=== PATIENT | female | born 1960 | race Caucasian/White ===

== ENCOUNTER → 2020-05-02 | Outpatient (CLI) | payer BC | END | disposition home or self-care (01) | LOC: LABWHC1 15:37 | PROVIDERS: ATTEND Family Medicine | DX: Z20.822 Contact with and (suspected) exposure to COVID-19 (principal); R11.2 Nausea with vomiting, unspecified | CPT/HCPCS: 87502; U0003; C9803; U0005 ==

== ENCOUNTER → 2020-05-05 | Outpatient (CLI) | payer BC ==
[2020-05-05 16:42] LABS: ALT 452 U/L (4-34); AST 318 U/L (14-36); African American GFR (CKD) >90 (>60 ml/min/1.73 sqM); Albumin 4.2 g/dL (3.5-5.0); Alkaline Phosphatase 235 U/L (38-126); Anion Gap 10 mmol/L; Blood Urea Nitrogen 20 mg/dL (7-17); Calcium 9.7 mg/dL (8.4-10.2); Carbon Dioxide 24 mmol/L (22-30); Chloride 104 mmol/L (98-107); Glucose 126 mg/dL (74-99); Non-African American GFR(CKD) >90 (>60 ml/min/1.73 sqM); Potassium 4.2 mmol/L (3.5-5.1); Sodium 138 mmol/L (137-145); Total Bilirubin 6.2 mg/dL (0.2-1.3); Total Protein 8.3 g/dL (6.3-8.2)
--- NOTE | 2020-05-05 16:55 | CT ---
EXAMINATION TYPE: CT abdomen w con DATE OF EXAM: 05/05/2020 COMPARISON: HISTORY: RUQ pain, jaundice, hx of hep CT DLP: 1308 mGycm Automated exposure control for dose reduction was used. CONTRAST: Performed with IV Contrast, patient injected with 100 mL of Isovue 300. Images were obtained from the diaphragm to the iliac crest with oral and IV contrast. The lung bases are clear consolidation. There is mild subsegmental atelectasis left lung base. Heart size is normal. There is no pericardial effusion. Liver spleen stomach pancreas gallbladder appear intact. Bile ducts are not dilated. There is no adrenal mass. Kidneys show satisfactory contrast opacification. There is no hydronephrosi s. Appendix is posterior and appears normal. There is no mesenteric edema. There is no ascites or josefina e air. Delayed images show normal renal excretion. There is no retroperitoneal adenopathy. Small federico l pattern is normal. There is no bowel obstruction. The lumbar vertebra have normal alignment. Disc spaces are fairly normal. Posterior elements are inta ct. There is no compression fracture. There is calcification in the L5-S1 disc. IMPRESSION: Negative CT scan of the abdomen. No dilated ducts. No focal liver defect.
== END | disposition home or self-care (01) ==
LOC: RADCTMAIN 15:21
PROVIDERS: ATTEND Family Medicine
DX: K75.2 Nonspecific reactive hepatitis (principal); R10.10 Upper abdominal pain, unspecified; R79.89 Other specified abnormal findings of blood chemistry
CPT/HCPCS: 80053; 74160; 36415; Q9967

== ENCOUNTER 2020-05-10 09:18 | Inpatient (IN) | payer BC ==
[2020-05-10] MEDS ORDERED: SODIUM CHLORIDE 0.9% 1,000 ML IV STA (09:54)
--- NOTE | 2020-05-10 10:03 | ED ---
General Adult HPI - General Chief complaint: Abdominal Pain Stated complaint: abn labs Time Seen by Provider: 05/10/20 09:29 Source: patient, RN notes reviewed, old records reviewed Mode of arrival: ambulatory Limitations: no limitations - History of Present Illness Initial comments: Patient's a 59-year-old female with no significant past medical history, presented to the emergency room today with chief complaint of jaundice, abdominal pain. Patient does admit that symptoms started approximately 10 days ago. She's been followed the family doctor. Did have a recent CAT scan and blood work. Patient states that she was notified today to come back here to the emergency room for consult with GI. Patient states she still been experiencing some pain in the right upper quadrant. She states that the pain is sporadic. Nothing seems to make it better or worse. She states she's currently comfortable at this time. She does admit to symptoms of nausea vomiting associated with this pain. Patient states that she's had "dumont" bowel movements. Patient denies any recent fever, chills, shortness of breath, chest pain, back pain, headaches or visual changes, or any other complaints. - Related Data Home Medications Medication Instructions Recorded Confirmed Ascorbic Acid [Vitamin C] 500 mg PO DAILY 05/10/20 05/10/20 Calcium/Magnessium 1 tab PO DAILY 05/10/20 05/10/20 Cholecalciferol [Vitamin D3 (25 25 mcg PO DAILY 05/10/20 05/10/20 Mcg = 1000 Iu)] Olopatadine HCl [Pataday] 1 drop BOTH EYES DAILY 05/10/20 05/10/20 Potassium Gluconate 99 mg PO DAILY 05/10/20 05/10/20 Allergies Allergy/AdvReac Type Severity Reaction Status Date / Time Milk Containing Products Allergy Unknown Verified 05/10/20 10:56 [Dairy] Review of Systems ROS Statement: Those systems with pertinent positive or pertinent negative responses have been documented in the HPI. ROS Other: All systems not noted in ROS Statement are negative. Past Medical History Past Medical History: No Reported History History of Any Multi-Drug Resistant Organisms: None Reported Past Surgical History: No Surgical Hx Reported Past Psychological History: No Psychological Hx Reported Smoking Status: Never smoker Past Alcohol Use History: Occasional, Rare Past Drug Use History: None Reported General Exam - General Exam Comments Initial Comments: General: The patient is awake and alert, in no distress, and does not appear acutely ill. Eye: Pupils are equal, round and reactive to light, extra-ocular movements are intact. Icteric conjunctiva Ears, nose, mouth and throat: There are moist mucous membranes and no oral lesions. Neck: The neck is supple Cardiovascular: There is a regular rate and rhythm. No murmur, rub or gallop is appreciated. Respiratory: Lungs are clear to auscultation, respirations are non-labored, breath sounds are equal. No wheezes, stridor, rales, or rhonchi. Gastrointestinal: Patient does have mild tenderness right upper quadrant and epigastric area. No rebound, guarding. Musculoskeletal: Normal ROM, no tenderness. Strength 5/5. Sensation intact. Pulses equal bilaterally 2+. Neurological: A&O x 3. CN II-XII intact, There are no obvious motor or sensory deficits. Coordination appears grossly intact. Speech is normal. Skin: Skin is warm and dry and no rashes or lesions are noted. Jaundiced Psychiatric: Cooperative, appropriate mood & affect, normal judgment. Limitations: no limitations Course Vital Signs 05/10/20 09:23 Temperature 97.9 F Pulse Rate 74 Respiratory 16 Rate Blood Pressure 129/75 O2 Sat by Pulse 98 Oximetry Medical Decision Making - Medical Decision Making Patient reexamined she is resting comfortable. Patient's labs been reviewed and does show elevated liver enzymes with bilirubin. Patient did have an ultrasound of the right upper quadrant which does show some cholelithiasis with a dilated common bile duct with no evidence of cholecystitis. The patient did have a recent CAT scan which was unremarkable 2 days ago. Patient will be admitted to the hospital for further evaluation and consult GI. Case was discussed with admitting physician Dr. Gonsalez who will admit the patient. Patient is with plan states understanding. - Lab Data Result diagrams: 05/10/20 09:57 05/10/20 09:57 Lab Results 05/10/20 05/10/20 05/10/20 Range/Units 09:57 09:57 09:57 WBC 6.8 (3.8-10.6) k/uL RBC 4.78 (3.80-5.40) m/uL Hgb 14.0 (11.4-16.0) gm/dL Hct 45.4 (34.0-46.0) % MCV 95.1 (80.0-100.0) fL MCH 29.3 (25.0-35.0) pg MCHC 30.8 L (31.0-37.0) g/dL RDW 15.9 H (11.5-15.5) % Plt Count 195 (150-450) k/uL MPV 11.6 Neutrophils % 71 % Lymphocytes % 19 % Monocytes % 4 % Eosinophils % 3 % Basophils % 1 % Neutrophils # 4.8 (1.3-7.7) k/uL Lymphocytes # 1.3 (1.0-4.8) k/uL Monocytes # 0.3 (0-1.0) k/uL Eosinophils # 0.2 (0-0.7) k/uL Basophils # 0.1 (0-0.2) k/uL Hypochromasia Slight Sodium 139 (137-145) mmol/L Potassium 3.9 (3.5-5.1) mmol/L Chloride 104 (98-107) mmol/L Carbon Dioxide 20 L (22-30) mmol/L Anion Gap 15 mmol/L BUN 22 H (7-17) mg/dL Creatinine 0.81 (0.52-1.04) mg/dL Est GFR (CKD-EPI)AfAm >90 (>60 ml/min/1.73 sqM) Est GFR (CKD-EPI)NonAf 81 (>60 ml/min/1.73 sqM) Glucose 137 H (74-99) mg/dL Calcium 10.2 (8.4-10.2) mg/dL Total Bilirubin 7.6 H (0.2-1.3) mg/dL AST 238 H (14-36) U/L ALT 359 H (4-34) U/L Alkaline Phosphatase 215 H (38-126) U/L Ammonia (<30) umol/L Total Protein 8.5 H (6.3-8.2) g/dL Albumin 4.3 (3.5-5.0) g/dL Amylase 33 (30-110) U/L Lipase 108 (23-300) U/L Urine Color Dark Brown Urine Appearance Cloudy H (Clear) Urine pH 5.5 (5.0-8.0) Ur Specific [place] 1.028 (1.001-1.035) Urine Protein 1+ H (Negative) Urine Glucose (UA) Negative (Negative) Urine Ketones Negative (Negative) Urine Blood Trace H (Negative) Urine Nitrite Negative (Negative) Urine Bilirubin 3+ H (Negative) Urine Urobilinogen 6.0 (<2.0) mg/dL Ur Leukocyte Esterase Trace H (Negative) Urine RBC 4 (0-5) /hpf Urine WBC 8 H (0-5) /hpf Ur Squamous Epith Cells 32 H (0-4) /hpf Urine Bacteria Rare H (None) /hpf Hyaline Casts 9 H (0-2) /lpf Urine Mucus Many H (None) /hpf 05/10/20 Range/Units 09:57 WBC (3.8-10.6) k/uL RBC (3.80-5.40) m/uL Hgb (11.4-16.0) gm/dL Hct (34.0-46.0) % MCV (80.0-100.0) fL MCH (25.0-35.0) pg MCHC (31.0-37.0) g/dL RDW (11.5-15.5) % Plt Count (150-450) k/uL MPV Neutrophils % % Lymphocytes % % Monocytes % % Eosinophils % % Basophils % % Neutrophils # (1.3-7.7) k/uL Lymphocytes # (1.0-4.8) k/uL Monocytes # (0-1.0) k/uL Eosinophils # (0-0.7) k/uL Basophils # (0-0.2) k/uL Hypochromasia Sodium (137-145) mmol/L Potassium (3.5-5.1) mmol/L Chloride (98-107) mmol/L Carbon Dioxide (22-30) mmol/L Anion Gap mmol/L BUN (7-17) mg/dL Creatinine (0.52-1.04) mg/dL Est GFR (CKD-EPI)AfAm (>60 ml/min/1.73 sqM) Est GFR (CKD-EPI)NonAf (>60 ml/min/1.73 sqM) Glucose (74-99) mg/dL Calcium (8.4-10.2) mg/dL Total Bilirubin (0.2-1.3) mg/dL AST (14-36) U/L ALT (4-34) U/L Alkaline Phosphatase (38-126) U/L Ammonia 19 (<30) umol/L Total Protein (6.3-8.2) g/dL Albumin (3.5-5.0) g/dL Amylase (30-110) U/L Lipase (23-300) U/L Urine Color Urine Appearance (Clear) Urine pH (5.0-8.0) Ur Specific [place] (1.001-1.035) Urine Protein (Negative) Urine Glucose (UA) (Negative) Urine Ketones (Negative) Urine Blood (Negative) Urine Nitrite (Negative) Urine Bilirubin (Negative) Urine Urobilinogen (<2.0) mg/dL Ur Leukocyte Esterase (Negative) Urine RBC (0-5) /hpf Urine WBC (0-5) /hpf Ur Squamous Epith Cells (0-4) /hpf Urine Bacteria (None) /hpf Hyaline Casts (0-2) /lpf Urine Mucus (None) /hpf Disposition Clinical Impression: Cholelithiasis, Jaundice, Elevated bilirubin Disposition: ADMITTED IP TO THIS [facility] Condition: Stable Is patient prescribed a controlled substance at d/c from ED?: No Referrals: Argenis Painting MD [Primary Care Provider] - 1-2 days Time of Disposition: 11:00
[2020-05-10 10:09] LABS: Basophils # (A) 0.1 k/uL (0-0.2); Basophils % (A) 1 %; Eosinophils # (A) 0.2 k/uL (0-0.7); Eosinophils % (A) 3 %; HCT 45.4 % (34.0-46.0); Hypochromasia Slight; Lymphocytes # (A) 1.3 k/uL (1.0-4.8); Lymphocytes % (A) 19 %; MCH 29.3 pg (25.0-35.0); MCHC 30.8 g/dL (31.0-37.0); MCV 95.1 fL (80.0-100.0); Mean Platelet Volume 11.6; Monocytes # (A) 0.3 k/uL (0-1.0); Monocytes % (A) 4 %; Neutrophils # (A) 4.8 k/uL (1.3-7.7); Neutrophils % (A) 71 %; Platelet Count 195 k/uL (150-450); RBC 4.78 m/uL (3.80-5.40); RDW 15.9 % (11.5-15.5); WBC 6.8 k/uL (3.8-10.6)
[2020-05-10 10:20] LABS: ALT 359 U/L (4-34); AST 238 U/L (14-36); African American GFR (CKD) >90 (>60 ml/min/1.73 sqM); Albumin 4.3 g/dL (3.5-5.0); Alkaline Phosphatase 215 U/L (38-126); Amylase 33 U/L (30-110); Anion Gap 15 mmol/L; Blood Urea Nitrogen 22 mg/dL (7-17); Calcium 10.2 mg/dL (8.4-10.2); Carbon Dioxide 20 mmol/L (22-30); Chloride 104 mmol/L (98-107); Glucose 137 mg/dL (74-99); Lipase 108 U/L (23-300); Non-African American GFR(CKD) 81 (>60 ml/min/1.73 sqM); Potassium 3.9 mmol/L (3.5-5.1); Sodium 139 mmol/L (137-145); Total Bilirubin 7.6 mg/dL (0.2-1.3); Total Protein 8.5 g/dL (6.3-8.2)
[2020-05-10 10:26] LABS: Appearance,Urine Cloudy (Clear); Bacteria,Urine Rare /hpf; Bilirubin,Urine 3+ (Negative); Blood,Urine Trace (Negative); Color,Urine Dark Brown; Glucose,Urine (UA) Negative (Negative); Hyaline Casts,Urine 9 /lpf (0-2); Ketones,Urine Negative (Negative); Leukocyte Esterase,Urine Trace (Negative); Mucus,Urine Many /hpf; Nitrite,Urine Negative (Negative); PH, Urine 5.5 (5.0-8.0); Protein,Urine 1+ (Negative); RBC,Urine 4 /hpf (0-5); Specific Gravity,Urine 1.028 (1.001-1.035); Squamous Epithelial Cell,Urine 32 /hpf (0-4); WBC,Urine 8 /hpf (0-5)
--- NOTE | 2020-05-10 10:42 | US ---
EXAMINATION TYPE: US abdomen limited DATE OF EXAM: 05/10/2020 COMPARISON: NONE CLINICAL HISTORY: pain. jaundice for 10 days with RUQ pain, itchy skin EXAM MEASUREMENTS: Liver Length: 14.1 cm Gallbladder Wall: 0.6 cm CBD: 1.0 cm Right Kidney: 9.2 x 3.9 x 5.0 cm Pancreas: limited views appear wnl Liver: intercostal imaging due to bowel gas, wnl Gallbladder: thickened wall with multiple stones seen Evidence for sonographic Welsh's sign: YES CBD: dilated Right Kidney: wnl IMPRESSION: Gallbladder wall thickening with multiple gallstones identified. Common bile duct is also dilated. No pericholecystic fluid.
[2020-05-10] MEDS ORDERED: NALOXONE 0.4 MG/ML 1 ML VIAL IV PRN (10:56)
[2020-05-10] MEDS ORDERED: ONDANSETRON 4 MG/2 ML VIAL IVP PRN (10:56)
[2020-05-10 12:06] LABS: Bilirubin, Conjugated 2.9 mg/dL (0.0-0.3); Bilirubin, Delta 2.9 mg/dL (0.0-0.2); Bilirubin,Unconjugated 1.7 mg/dL (0.0-1.1); Total Bilirubin 7.5 mg/dL (0.2-1.3)
[2020-05-10] MEDS ORDERED: HYDROmorphone 0.5 MG/0.5 ML SYRINGE IVP PRN (13:43)
--- NOTE | 2020-05-10 13:43 | P.HPIM ---
History of Present Illness H&P Date: 05/10/20 Lyndsay Ng, is a 59-year-old female who presented to [facility] emergency room with a chief complaint of abdominal pain patient stated that her symptoms started about 10 days ago she was seen by Dr. Painting her primary care physician, blood test and computed tomography scan of the abdomen were done as outpatient. computed tomography scan of the abdomen was done on 05/05/2020 and was essentially normal, today patient was referred to emergency room for further evaluation and treatment of her symptoms, she was evaluated in the emergency room vital exam on presentation reveals a temperature of 97.9 pulse 74 respiration 16 blood pressure 129/75 pulse ox 98% on room air her white blood count was 6.8 hemoglobin 14.0 platelet count 195 sodium 139 potassium 3.9 chloride 104 CO2 20 BUN 22 creatinine 0.81 glucose 137 total bilirubin was significantly elevated at 7.5 AST 238 he LT 259 alkaline phosphatase 215 amylase and lipase were normal coronary 5 is PCR testing was negative. Abdomen ultrasound done today in the emergency room revealed evidence of gallbladder wall thickening with multiple gallstones identified common bile duct is also dilated. Patient was admitted to medical floor and gastroenterology consultation was requested. Patient denies any significant past medical history, she denies any history of coronary artery disease, congestive heart failure, diabetes, she denies any problems with gallbladder in the past she denies any history of smoking. On review of systems patient is alert and oriented 3 in no distress she is complaining of mild to moderate right upper quadrant pain, and complaining of jaundice otherwise she denies any complaints there is no fever or chills no headache or dizziness no chest pain no shortness of breath no cough no nausea or vomiting, no diarrhea no blood in the stools, no burning with urination no frequency or urgency and no hematuria. Past Medical History Past Medical History: No Reported History History of Any Multi-Drug Resistant Organisms: None Reported Past Surgical History: No Surgical Hx Reported Past Anesthesia/Blood Transfusion Reactions: No Reported Reaction Past Psychological History: No Psychological Hx Reported Smoking Status: Never smoker Past Alcohol Use History: Occasional, Rare Past Drug Use History: None Reported - Past Family History Father Family Medical History: Coronary Artery Disease (CAD) Mother History Unknown: Yes Family Medical History: Diabetes Mellitus, Eye Disorder Additional Family Medical History / Comment(s): type II DM, lost eye sight Medications and Allergies Home Medications Medication Instructions Recorded Confirmed Type Ascorbic Acid [Vitamin C] 500 mg PO DAILY 05/10/20 05/10/20 History Calcium/Magnessium 1 tab PO DAILY 05/10/20 05/10/20 History Cholecalciferol [Vitamin D3 (25 25 mcg PO DAILY 05/10/20 05/10/20 History Mcg = 1000 Iu)] Olopatadine HCl [Pataday] 1 drop BOTH EYES DAILY 05/10/20 05/10/20 History Potassium Gluconate 99 mg PO DAILY 05/10/20 05/10/20 History Allergies Allergy/AdvReac Type Severity Reaction Status Date / Time Milk Containing Products Allergy Unknown Verified 05/10/20 12:18 [Dairy] Physical Exam Vitals: Vital Signs Temp Pulse Resp BP Pulse Ox 05/10/20 11:59 98.2 F 56 L 18 115/73 96 05/10/20 09:23 97.9 F 74 16 129/75 98 Intake and Output 05/09/20 05/10/20 05/10/20 22:59 06:59 14:59 Other: Weight 117.934 kg In general patient is alert and oriented 3 in no apparent distress HEENT head normocephalic and atraumatic, there is clear jaundice in the sclera and the skin Neck is supple no JVD no goiter no lymphadenopathy Chest exam reveals crackles in both lung bases no wheezing Cardiac exam reveals regular heart sounds S1 and S2 no gallops no murmurs Abdomen is soft, with mild right upper quadrant tenderness no organomegaly, with normal bowel sounds Extremity exam reveals no edema no cyanosis or clubbing Neurological examination reveals, no gross focal neurological deficits Results CBC & Chem 7: 05/10/20 09:57 05/10/20 09:57 Labs: Abnormal Lab Results - Last 24 Hours (Table) 05/10/20 05/10/20 05/10/20 Range/Units 09:57 09:57 09:57 MCHC 30.8 L (31.0-37.0) g/dL RDW 15.9 H (11.5-15.5) % Carbon Dioxide 20 L (22-30) mmol/L BUN 22 H (7-17) mg/dL Glucose 137 H (74-99) mg/dL Total Bilirubin 7.6 H (0.2-1.3) mg/dL Conjugated Bilirubin (0.0-0.3) mg/dL Unconjugated Bilirubin (0.0-1.1) mg/dL Delta Bilirubin (0.0-0.2) mg/dL AST 238 H (14-36) U/L ALT 359 H (4-34) U/L Alkaline Phosphatase 215 H (38-126) U/L Total Protein 8.5 H (6.3-8.2) g/dL Urine Appearance Cloudy H (Clear) Urine Protein 1+ H (Negative) Urine Blood Trace H (Negative) Urine Bilirubin 3+ H (Negative) Ur Leukocyte Esterase Trace H (Negative) Urine WBC 8 H (0-5) /hpf Ur Squamous Epith Cells 32 H (0-4) /hpf Urine Bacteria Rare H (None) /hpf Hyaline Casts 9 H (0-2) /lpf Urine Mucus Many H (None) /hpf 05/10/20 Range/Units 09:57 MCHC (31.0-37.0) g/dL RDW (11.5-15.5) % Carbon Dioxide (22-30) mmol/L BUN (7-17) mg/dL Glucose (74-99) mg/dL Total Bilirubin 7.5 H (0.2-1.3) mg/dL Conjugated Bilirubin 2.9 H (0.0-0.3) mg/dL Unconjugated Bilirubin 1.7 H (0.0-1.1) mg/dL Delta Bilirubin 2.9 H (0.0-0.2) mg/dL AST (14-36) U/L ALT (4-34) U/L Alkaline Phosphatase (38-126) U/L Total Protein (6.3-8.2) g/dL Urine Appearance (Clear) Urine Protein (Negative) Urine Blood (Negative) Urine Bilirubin (Negative) Ur Leukocyte Esterase (Negative) Urine WBC (0-5) /hpf Ur Squamous Epith Cells (0-4) /hpf Urine Bacteria (None) /hpf Hyaline Casts (0-2) /lpf Urine Mucus (None) /hpf Thrombosis Risk Factor Assmnt - Choose All That Apply Each Factor Represents 1 point: Age 41-60 years, Minor surgery planned, Obesity (BMI >25), Varicose veins Thrombosis Risk Factor Assessment Total Risk Factor Score: 4 Thrombosis Risk Factor Assessment Level: Moderate Risk Assessment and Plan Plan: Abdominal pain Jaundice, with elevated total bilirubin at 7.5 Evidence of gallbladder wall thickening with evidence of cholelithiasis Dilated common bile duct Elevated liver enzymes AST a LT and alkaline phosphatase At this time patient is admitted to medical floor she would be kept on clear liquid diet She will be given IV fluid and IV pain medications Consultation for gastroenterology was initiated
--- NOTE | 2020-05-10 16:17 | CONS ---
CONSULTATION DATE OF DICTATION: 05/10/2020. REASON FOR CONSULTATION: Right upper quadrant abdominal pain, elevated LFTs and jaundice. HISTORY OF PRESENT ILLNESS: The patient is a 59-year-old pleasant white female admitted to the hospital complaining of severe right upper quadrant abdominal pain for the last 8 days duration. Her symptoms began last Friday where the pain was very intense and subsequently had some labs done on outpatient basis and was told that she had elevated LFTs and jaundice. She went to the emergency room on May 05 and she was noted to have a bilirubin of 6.7 with elevated serum transaminases. She had a CT of the abdomen and pelvis done at that time that was completely within normal limits. The patient was subsequently discharged home; however, she continued to have persistent right upper quadrant abdominal pain and she was advised to come back to the emergency room and repeat labs showed an elevated bilirubin of 7.5, AST of 238, ALT of 359 and alkaline phosphatase of 215 with normal amylase and lipase. She did have ultrasound of the abdomen done in the ER that showed evidence of mild gallbladder wall thickening and multiple gallstones with CBD duct dilation. Hence we are consulted for possible ERCP. Patient denies any fever, chills, or night sweats. She has been having intermittent nausea, vomiting. She denies any recent weight loss. Never had these symptoms in the past. PAST MEDICAL HISTORY: None. PAST SURGICAL HISTORY: None. MEDICATIONS: Medications at home none. ALLERGIES: No known drug allergies. SOCIAL HISTORY: No smoking. No alcohol use. FAMILY HISTORY: Father coronary artery disease. Mother had diabetes mellitus. REVIEW OF SYSTEMS: CARDIOPULMONARY: No chest pain or shortness of breath. GENITOURINARY: No dysuria or hematuria. MUSCULOSKELETAL: Unremarkable. SKIN: Unremarkable. ENDOCRINE: Unremarkable. PSYCHIATRIC: Unremarkable. NEUROLOGY: Unremarkable. ENT/VISION: Unremarkable. CONSTITUTIONAL: No recent weight loss. No fever, chills, night sweats. PHYSICAL EXAMINATION: Blood pressure 129/75, pulse rate 74, temperature 97.9. HEENT EXAMINATION: Unremarkable. Conjunctivae pink. Sclerae icteric. Oral cavity, no lesions. NECK: No JVD or lymph node enlargement. CHEST: Was clear to auscultation. HEART: Regular rate and rhythm. ABDOMEN: Soft. Bowel sounds are positive. No organomegaly. EXTREMITIES: No pedal edema. NEURO: She is alert and oriented x3. No focal deficits. LABS: Labs from May 04, WBC 6.5, hemoglobin 13.7, platelets normal. T-bilirubin was 6.7, AST 268, ALT 443, and alkaline phosphatase 268. Today T bilirubin 7.5, AST 238, ALT 359 and alkaline phosphatase to 215. WBC 6.8, hemoglobin 14, and platelets are normal. Hepatitis serologies for A, B and C are negative. Coronavirus PCR is negative. IMPRESSION: This is a lady who presents with severe right upper quadrant abdominal pain for the last 3 days duration. The pain has been progressively getting worse associated with nausea, vomiting and now with elevated serum transaminases and bilirubin up to 7.5. Ultrasound showed gallstones and CBD dilation, most likely we are dealing with choledocholithiasis. RECOMMENDATIONS: 1. Start her on clear liquid diet. 2. We will proceed with ERCP tomorrow. I discussed with the patient, risks, benefits and complications of the procedure and she is agreeable to it. 3. Obtain surgical consultation. 4. Repeat labs in the morning and we will follow with you closely. Thank you for this consultation. MMODL / IJN: [id number] /
[2020-05-10] MEDS: PANTOPRAZOLE 40 MG/10 ML VIAL IVP SCH (19:51)
[2020-05-11 06:29] LABS: Prothrombin Time 10.3 sec (9.0-12.0)
[2020-05-11 06:37] LABS: Basophils # (A) 0.1 k/uL (0-0.2); Basophils % (A) 1 %; Eosinophils # (A) 0.1 k/uL (0-0.7); Eosinophils % (A) 3 %; HCT 37.2 % (34.0-46.0); HGB 11.8 gm/dL (11.4-16.0); Lymphocytes # (A) 1.4 k/uL (1.0-4.8); Lymphocytes % (A) 30 %; MCHC 31.7 g/dL (31.0-37.0); MCV 94.5 fL (80.0-100.0); Mean Platelet Volume 12.1; Monocytes # (A) 0.2 k/uL (0-1.0); Monocytes % (A) 5 %; Neutrophils # (A) 2.8 k/uL (1.3-7.7); Neutrophils % (A) 58 %; Platelet Count 173 k/uL (150-450); RBC 3.94 m/uL (3.80-5.40); RDW 15.4 % (11.5-15.5); WBC 4.7 k/uL (3.8-10.6)
[2020-05-11 06:44] LABS: ALT 335 U/L (4-34); AST 236 U/L (14-36); African American GFR (CKD) >90 (>60 ml/min/1.73 sqM); Albumin 3.4 g/dL (3.5-5.0); Alkaline Phosphatase 182 U/L (38-126); Anion Gap 8 mmol/L; Blood Urea Nitrogen 17 mg/dL (7-17); Calcium 9.2 mg/dL (8.4-10.2); Carbon Dioxide 23 mmol/L (22-30); Chloride 108 mmol/L (98-107); Glucose 97 mg/dL (74-99); Non-African American GFR(CKD) >90 (>60 ml/min/1.73 sqM); Potassium 3.9 mmol/L (3.5-5.1); Sodium 139 mmol/L (137-145); Total Bilirubin 6.2 mg/dL (0.2-1.3); Total Protein 6.9 g/dL (6.3-8.2)
[2020-05-11] MEDS: KETOTIFEN 0.025% OPHTH DROPS 5 ML BTL BOTH EYES SCH ×2 (08:56→21:44)
[2020-05-11] MEDS: PANTOPRAZOLE 40 MG/10 ML VIAL IVP SCH ×2 (08:56→21:41)
[2020-05-11] MEDS ORDERED: INDOMETHACIN 50MG SUPPOSITORY RECTAL ONE (12:30)
[2020-05-11] MEDS: LEVOFLOXACIN 500MG-D5W PMX 500 MG in DEXTROSE/WATER 1 100ML.BAG IVPB SCH (13:08)
--- NOTE | 2020-05-11 14:16 | P.GSCN ---
History of Present Illness Consult date: 05/11/20 History of present illness: CHIEF COMPLAINT: Gallstones with jaundice HISTORY OF PRESENT ILLNESS: The patient is a 59 year old female without any previous medical problems who comes in with over 1 week history of right upper quadrant and epigastric abdominal pain. She comes in with a family history of gallbladder disorder where her mother recently had her gallbladder removed in the last 5 years. She presented with jaundice, total bilirubin over 7.0. Additional diagnostic studies demonstrated stones within the common bile duct. Patient is about to undergo an ERCP today. General surgery is consulted for management of symptomatic gallstones. Presently, no reports of nausea and vomiting. She reports her previous moderate right upper quadrant abdominal pain is now improved. PAST MEDICAL HISTORY: See list and reviewed PAST SURGICAL HISTORY: See list and reviewed MEDICATIONS: See list and reviewed ALLERGIES: See list and reviewed SOCIAL HISTORY: See list and reviewed FAMILY HISTORY: See list and reviewed REVIEW OF ORGAN SYSTEMS: CONSTITUTIONAL: No fevers or chills. Overweight 100+ pounds EYES: Denies any trouble with vision. No glasses. HEENT: No difficulties with hearing. No nosebleeds. RESPIRATORY: Denies pneumonia. Denies any troubles with breathing or dyspnea on exertion. CARDIOVASCULAR: Denies any chest pain, palpitations, or recent heart attacks. GASTROINTESTINAL: Presents with new onset jaundice. GENITOURINARY: Denies any blood in urine or increased urinary frequency. NEUROLOGICAL: Denies any numbness or tingling along the distal extremities. No seizure disorders or headaches. MUSCULOSKELETAL: Has back pain, stiffness or joint arthritis. SKIN: No current skin cancer. No rash. PSYCHIATRIC: Denies current depression or suicidal thoughts. ENDOCRINE: Denies current thyroid disorders. Denies any blood sugar glucose intolerance. HEME/LYMPHATIC: Denies any lumps and bumps around the neck. No recent deep ve nous thrombosis. ALLERGY/IMMUNOLOGY: No immunoglobulin therapy. No immune deficiencies. BREAST: Denies current breast lumps, pain or nipple discharge. PHYSICAL EXAM: VITALS: Reviewed CONSTITUTIONAL: Well developed and in no acute distress. EYES: Conjuctivae with sclera icterus. Pupils are equally round and reactive to light. Extraocular movements grossly intact. HEAD, EARS, NOSE, THROAT: Moist buccal mucosa. Head is atraumatic, normocephalic. Hears conversational speech. No nasal drainage. Good dentition. NECK: Supple. No JV distention. No thyroidomegaly. RESPIRATORY: Non-labored respirations and equal bilateral excursions. No gross wheezes. CARDIOVASCULAR: Regular rate and rhythm. Extremities without moderate edema. Palpable 2+ radial pulses. ABDOMEN: Soft. Protuberant. Tender right upper quadrant. No gross peritonitis. LYMPH: No neck lymphadenopathy. MUSCULOSKELETAL: Range of motion bilateral upper extremities within normal limits. Nail and fingers with good capillary refill. SKIN: Warm and well perfused with good skin turgor. NEUROLOGIC: Cranial nerves II through XII grossly intact. Sensation upper and extremities intact. No focal or lateralizing signs. PSYCH: Appropriate affect. Alert and oriented to person, place and time. Displays appropriate insight. CLINCAL LABS: Reviewed. WBC on presentation 6.8. Total bilirubin on presentation 7.5 down to 6.2. LFTs elevated 200 to 300s. PT/INR within normal limits. IMAGING: Independently reviewed right upper quadrant ultrasound of the gallbladder demonstrating difficult penetration of visualization due to body habitus. Shadowing identified within the gallbladder. This my independent interpretation. Gallbladder wall thickening over 6 mm. RADIOLOGY: Report reviewed of gallbladder ultrasound also demonstrating dilated common bile duct and gallbladder multiple gallstones. ASSESSMENT: 1. Jaundice with gallstones 2. Elevated liver enzymes 3. Morbid obesity due to excess calories, BMI 41.7 4. Family history gallbladder disease PLAN: 1. Agree with GI team for ERCP 2. She presents moderately elevated total bilirubin levels and LFTs should improve after ERCP. 3. Do recommend surgical intervention as liver enzymes and elevated bilirubin improves. 4. Cholecystectomy after ERCP advised when medically stable Thank you for this kind consultation. Past Medical History Past Medical History: No Reported History History of Any Multi-Drug Resistant Organisms: None Reported Past Surgical History: No Surgical Hx Reported Past Anesthesia/Blood Transfusion Reactions: No Reported Reaction Past Psychological History: No Psychological Hx Reported Smoking Status: Never smoker Past Alcohol Use History: Occasional, Rare Past Drug Use History: None Reported - Past Family History Father Family Medical History: Coronary Artery Disease (CAD) Mother History Unknown: Yes Family Medical History: Diabetes Mellitus, Eye Disorder Additional Family Medical History / Comment(s): type II DM, lost eye sight Medications and Allergies Home Medications Medication Instructions Recorded Confirmed Type Ascorbic Acid [Vitamin C] 500 mg PO DAILY 05/10/20 05/10/20 History Calcium/Magnessium 1 tab PO DAILY 05/10/20 05/10/20 History Cholecalciferol [Vitamin D3 (25 25 mcg PO DAILY 05/10/20 05/10/20 History Mcg = 1000 Iu)] Olopatadine HCl [Pataday] 1 drop BOTH EYES DAILY 05/10/20 05/10/20 History Potassium Gluconate 99 mg PO DAILY 05/10/20 05/10/20 History Allergies Allergy/AdvReac Type Severity Reaction Status Date / Time Milk Containing Products Allergy Unknown Verified 05/10/20 12:18 [Dairy] lactose AdvReac Unknown Verified 05/10/20 19:58 Surgical - Exam Vital Signs Temp Pulse Resp BP Pulse Ox 97.9 F 74 16 129/75 98 05/10/20 09:23 05/10/20 09:23 05/10/20 09:23 05/10/20 09:23 05/10/20 09:23 Results - Labs 05/11/20 05:55 05/11/20 05:55 Abnormal Lab Results - Last 24 Hours (Table) 05/11/20 Range/Units 05:55 Chloride 108 H (98-107) mmol/L Total Bilirubin 6.2 H (0.2-1.3) mg/dL AST 236 H (14-36) U/L ALT 335 H (4-34) U/L Alkaline Phosphatase 182 H (38-126) U/L Albumin 3.4 L (3.5-5.0) g/dL Diabetes panel 05/11/20 Range/Units 05:55 Sodium 139 (137-145) mmol/L Potassium 3.9 (3.5-5.1) mmol/L Chloride 108 H (98-107) mmol/L Carbon Dioxide 23 (22-30) mmol/L BUN 17 (7-17) mg/dL Creatinine 0.72 (0.52-1.04) mg/dL Glucose 97 (74-99) mg/dL Calcium 9.2 (8.4-10.2) mg/dL AST 236 H (14-36) U/L ALT 335 H (4-34) U/L Alkaline Phosphatase 182 H (38-126) U/L Total Protein 6.9 (6.3-8.2) g/dL Albumin 3.4 L (3.5-5.0) g/dL Calcium panel 05/11/20 Range/Units 05:55 Calcium 9.2 (8.4-10.2) mg/dL Albumin 3.4 L (3.5-5.0) g/dL Pituitary panel 05/11/20 Range/Units 05:55 Sodium 139 (137-145) mmol/L Potassium 3.9 (3.5-5.1) mmol/L Chloride 108 H (98-107) mmol/L Carbon Dioxide 23 (22-30) mmol/L BUN 17 (7-17) mg/dL Creatinine 0.72 (0.52-1.04) mg/dL Glucose 97 (74-99) mg/dL Calcium 9.2 (8.4-10.2) mg/dL Adrenal panel 05/11/20 Range/Units 05:55 Sodium 139 (137-145) mmol/L Potassium 3.9 (3.5-5.1) mmol/L Chloride 108 H (98-107) mmol/L Carbon Dioxide 23 (22-30) mmol/L BUN 17 (7-17) mg/dL Creatinine 0.72 (0.52-1.04) mg/dL Glucose 97 (74-99) mg/dL Calcium 9.2 (8.4-10.2) mg/dL Total Bilirubin 6.2 H (0.2-1.3) mg/dL AST 236 H (14-36) U/L ALT 335 H (4-34) U/L Alkaline Phosphatase 182 H (38-126) U/L Total Protein 6.9 (6.3-8.2) g/dL Albumin 3.4 L (3.5-5.0) g/dL Assessment and Plan (1) Morbid obesity due to excess calories Current Visit: Yes Status: Acute Code(s): E66.01 - MORBID (SEVERE) OBESITY DUE TO EXCESS CALORIES SNOMED Code(s): 645623666 (2) Family history of gallbladder disease Current Visit: Yes Status: Acute Code(s): Z83.79 - FAMILY HISTORY OF OTHER DISEASES OF THE DIGESTIVE SYSTEM SNOMED Code(s): 928890579 (3) Elevated liver enzymes Current Visit: Yes Status: Acute Code(s): R74.8 - ABNORMAL LEVELS OF OTHER SERUM ENZYMES SNOMED Code(s): 719876436 (4) Cholelithiasis Current Visit: Yes Status: Acute Code(s): K80.20 - CALCULUS OF GALLBLADDER W/O CHOLECYSTITIS W/O OBSTRUCTION SNOMED Code(s): 404676782 (5) Elevated bilirubin Current Visit: Yes Status: Acute Code(s): R17 - UNSPECIFIED JAUNDICE SNOMED Code(s): 83639853 (6) Jaundice Current Visit: Yes Status: Acute Code(s): R17 - UNSPECIFIED JAUNDICE SNOMED Code(s): 31256326
[2020-05-11] MEDS ORDERED: IOPAMIDOL-300 50ML BTL INJ ONE ×2 (14:25→14:49)
[2020-05-11] MEDS ORDERED: fentaNYL (PF) 50 MCG/ML 2 ML AMP ONE (14:31)
[2020-05-11] MEDS ORDERED: SUCCINYLCHOLINE CHLORIDE VIAL 200 MG/10 ML VIAL IV ONE (14:31)
[2020-05-11] MEDS ORDERED: PROPOFOL 10 MG/ML 20 ML VIAL IV ONE (14:31)
[2020-05-11] MEDS ORDERED: IV FLUID CONTINUATION 1,000 ML IV ONE (14:33)
--- NOTE | 2020-05-11 15:20 | P.PCN ---
Date of Procedure: 05/11/20 Procedure(s) Performed: Brief history: Patient is a year-old pleasant lady scheduled for an ERCP as part of evaluation of abdominal pain and elevated serum transaminases for the last 2 days' duration. Procedure performed: ERCP Preoperative diagnoses: Obstructive jaundice, possible CBD stone IV sedation per anesthesia: Procedure: After informed consent was obtained from the patient and after the risks benefits and complications including bleeding perforation and pancreatitis explained in detail the patient was brought into the endoscopy unit. The patient was placed in prone position and IV conscious sedation was administered by anesthesia under continuous monitoring. The Olympus side-viewing duo denoscope was then inserted into the mouth and esophagus intubated without any difficulty. The scope was gradually advanced into the stomach and duodenum. The major papilla was identified without any difficulty. Initial cannulation resultedin opacification of the pancreatic duct that appeared normal. Subsequently despite multiple attempts with a taper-tip catheter and wire guided cannulation was not able to cannulate the common bile duct. Hence the procedure was terminated. Patient tolerated the procedure well. Impression: Unsuccessful cannulation of the common bile duct Normal pancreatic duct Recommendations: The findings of this examination were discussed with the patient. This will discuss with Dr. Becerra and consider transferring the patient to [facility] for repeat ERCP. She'll be started on a clear liquid diet.
[2020-05-11] MEDS ORDERED: hydrALAZINE HCL 20 MG/ML 1 ML VIAL IVP ONE (15:56)
--- NOTE | 2020-05-11 16:04 | FL ---
EXAMINATION TYPE: FL ERCP DATE OF EXAM: 05/11/2020 CLINICAL HISTORY: Gallstones. Pain. TECHNIQUE: Fluoroscopy. COMPARISON: CT abdomen May 05, 2020.Limited abdominal ultrasound from yesterday FINDINGS: Fluoroscopic guidance was provided during ERCP procedure performed by Dr. Burnham. A total of 7 seconds of fluoroscopic time was utilized during the procedure and 1 spot images was acquired . Please refer to procedure note for further details as I was not present nor performed procedure. IMPRESSION: As Above.
--- NOTE | 2020-05-11 16:59 | P.DS ---
Providers Date of admission: 05/10/20 10:52 Expected date of discharge: 05/11/20 Attending physician: Jyothi Gonsalez Consults: 05/10/20 10:57 Consult Physician Routine Consulting Provider: Pilar Burnham Consult Reason/Comments: Cholelithiasis Do you want consulting provider notified?: Yes 05/10/20 15:19 Consult Physician Routine Consulting Provider: Elizabeth Becerra Consult Reason/Comments: cholecystitis, cholelithiasis Do you want consulting provider notified?: Yes Primary care physician: Argenis Painting [facility] Course: Diagnosis on discharge: 1. Abdominal pain 2. Jaundice, with elevated total bilirubin at 7.5 3. Evidence of gallbladder wall thickening with evidence of cholelithiasis 4. Dilated common bile duct 5. Elevated liver enzymes AST a LT and alkaline phosphatase At this time patient is admitted to medical floor she would be kept on clear liquid diet She will be given IV fluid and IV pain medications Consultation for gastroenterology was initiated Patient was seen by gastroenterology attempted ERCP on 05/11/2020 was not successful plan is to transfer patient to [facility] course: Lyndsay Ng, is a 59-year-old female who presented to [facility] emergency room with a chief complaint of abdominal pain patient stated that her symptoms started about 10 days ago she was seen by Dr. Painting her primary care physician, blood test and computed tomography scan of the abdomen were done as outpatient. computed tomography scan of the abdomen was done on 05/05/2020 and was essentially normal, today patient was referred to emergency room for further evaluation and treatment of her symptoms, she was evaluated in the emergency room vital exam on presentation reveals a temperature of 97.9 pulse 74 respiration 16 blood pressure 129/75 pulse ox 98% on room air her white blood count was 6.8 hemoglobin 14.0 platelet count 195 sodium 139 potassium 3.9 chloride 104 CO2 20 BUN 22 creatinine 0.81 glucose 137 total bilirubin was significantly elevated at 7.5 AST 238 he LT 259 alkaline phosphatase 215 amylase and lipase were normal coronary 5 is PCR testing was negative. Abdomen ultrasound done today in the emergency room revealed evidence of gallbladder wall thickening with multiple gallstones identified common bile duct is also dilated. Patient was admitted to medical floor and gastroenterology consultation was requested. Patient denies any significant past medical history, she denies any history of coronary artery disease, congestive heart failure, diabetes, she denies any problems with gallbladder in the past she denies any history of smoking. On review of systems patient is alert and oriented 3 in no distress she is complaining of mild to moderate right upper quadrant pain, and complaining of jaundice otherwise she denies any complaints there is no fever or chills no headache or dizziness no chest pain no shortness of breath no cough no nausea or vomiting, no diarrhea no blood in the stools, no burning with urination no frequency or urgency and no hematuria. Patient Condition at Discharge: Stable Plan - Discharge Summary Discharge Rx Participant: No New Discharge Prescriptions: No Action Olopatadine HCl [Pataday] 1 drop BOTH EYES DAILY Cholecalciferol [Vitamin D3 (25 Mcg = 1000 Iu)] 25 mcg PO DAILY Ascorbic Acid [Vitamin C] 500 mg PO DAILY Potassium Gluconate 99 mg PO DAILY Calcium/Magnessium 1 tab PO DAILY Discharge Medication List Ascorbic Acid [Vitamin C] 500 mg PO DAILY 05/10/20 [History] Calcium/Magnessium 1 tab PO DAILY 05/10/20 [History] Cholecalciferol [Vitamin D3 (25 Mcg = 1000 Iu)] 25 mcg PO DAILY 05/10/20 [History] Olopatadine HCl [Pataday] 1 drop BOTH EYES DAILY 05/10/20 [History] Potassium Gluconate 99 mg PO DAILY 05/10/20 [History] Follow up Appointment(s)/Referral(s): Argenis Painting MD [Primary Care Provider] - 1-2 days
[2020-05-11] MEDS ORDERED: BENZOCAINE/MENTHOL LOZENG 1 EACH LOZENGE MUCOUS MEM PRN (23:06)
[2020-05-12] MEDS: KETOTIFEN 0.025% OPHTH DROPS 5 ML BTL BOTH EYES SCH (08:21)
[2020-05-12 08:37] LABS: ALT 361 U/L (4-34); AST 274 U/L (14-36); African American GFR (CKD) >90 (>60 ml/min/1.73 sqM); Albumin 3.6 g/dL (3.5-5.0); Alkaline Phosphatase 188 U/L (38-126); Anion Gap 10 mmol/L; Blood Urea Nitrogen 16 mg/dL (7-17); Calcium 9.3 mg/dL (8.4-10.2); Carbon Dioxide 20 mmol/L (22-30); Chloride 109 mmol/L (98-107); Glucose 133 mg/dL (74-99); Non-African American GFR(CKD) >90 (>60 ml/min/1.73 sqM); Potassium 3.6 mmol/L (3.5-5.1); Sodium 139 mmol/L (137-145); Total Bilirubin 6.3 mg/dL (0.2-1.3); Total Protein 7.2 g/dL (6.3-8.2)
[2020-05-12 08:51] LABS: Basophils % (A) 1 %; Eosinophils # (A) 0.1 k/uL (0-0.7); Eosinophils % (A) 2 %; HGB 12.9 gm/dL (11.4-16.0); Hypochromasia Slight; Lymphocytes # (A) 1.4 k/uL (1.0-4.8); Lymphocytes % (A) 20 %; MCH 29.7 pg (25.0-35.0); MCHC 31.5 g/dL (31.0-37.0); MCV 94.4 fL (80.0-100.0); Mean Platelet Volume 12.3; Monocytes # (A) 0.3 k/uL (0-1.0); Monocytes % (A) 4 %; Neutrophils % (A) 72 %; Platelet Count 185 k/uL (150-450); RBC 4.34 m/uL (3.80-5.40); RDW 15.3 % (11.5-15.5)
[2020-05-12 09:32] LABS: Large Platelets Present
[2020-05-12 09:33] LABS: Anisocytosis (M) Present; Poikilocytosis (M) Present
[2020-05-12 10:09] VITALS: RESP 20
[2020-05-12] MEDS: PANTOPRAZOLE 40 MG/10 ML VIAL IVP SCH (12:05)
[2020-05-12] MEDS: LEVOFLOXACIN 500MG-D5W PMX 500 MG in DEXTROSE/WATER 1 100ML.BAG IVPB SCH (12:06)
--- NOTE | 2020-05-12 13:35 | P.PN ---
Subjective Progress Note Date: 05/12/20 Lyndsay Ng, is a 59-year-old female who presented to [facility] emergency room with a chief complaint of abdominal pain patient stated that her symptoms started about 10 days ago she was seen by Dr. Painting her primary care physician, blood test and computed tomography scan of the abdomen were done as outpatient. computed tomography scan of the abdomen was done on 05/05/2020 and was essentially normal, today patient was referred to emergency room for further evaluation and treatment of her symptoms, she was evaluated in the emergency room vital exam on presentation reveals a temperature of 97.9 pulse 74 respiration 16 blood pressure 129/75 pulse ox 98% on room air her white blood c ount was 6.8 hemoglobin 14.0 platelet count 195 sodium 139 potassium 3.9 chloride 104 CO2 20 BUN 22 creatinine 0.81 glucose 137 total bilirubin was significantly elevated at 7.5 AST 238 he LT 259 alkaline phosphatase 215 amylase and lipase were normal coronary 5 is PCR testing was negative. Abdomen ultrasound done today in the emergency room revealed evidence of gallbladder wall thickening with multiple gallstones identified common bile duct is also dilated. Patient was admitted to medical floor and gastroenterology consultation was requested. Patient denies any significant past medical history, she denies any history of coronary artery disease, congestive heart failure, diabetes, she denies any problems with gallbladder in the past she denies any history of smoking. On review of systems patient is alert and oriented 3 in no distress she is complaining of mild to moderate right upper quadrant pain, and complaining of jaundice otherwise she denies any complaints there is no fever or chills no headache or dizziness no chest pain no shortness of breath no cough no nausea or vomiting, no diarrhea no blood in the stools, no burning with urination no frequency or urgency and no hematuria. On 05/12/2020 patient was seen and examined on the medical floor she is alert and oriented 3 in no apparent distress she is resting comfortably in bed she is still complaining of pain in the right upper quadrant otherwise she denies any complaints yesterday Dr. Burnham attempted ERCP without success. Plan is to transfer patient to [facility], transfer was done yesterday at this radha e we are still awaiting for a bed at [facility]. Patient is stable will continue with current management until transfer. Objective - Vital Signs Vital signs: Vital Signs Temp 98.2 F 05/12/20 08:36 Pulse 74 05/12/20 08:36 Resp 20 05/12/20 08:36 BP 138/79 05/12/20 08:36 Pulse Ox 96 05/12/20 08:36 Intake & Output 05/11/20 05/12/20 05/12/20 18:59 06:59 18:59 Intake Total 400 Balance 400 Intake: IV 400 Other: Voiding Method Toilet # Voids 1 2 # Bowel Movements 1 - Exam In general patient is alert and oriented 3 in no apparent distress HEENT head normocephalic and atraumatic, there is clear jaundice in the sclera and the skin Neck is supple no JVD no goiter no lymphadenopathy Chest exam reveals crackles in both lung bases no wheezing Cardiac exam reveals regular heart sounds S1 and S2 no gallops no murmurs Abdomen is soft, with mild right upper quadrant tenderness no organomegaly, with normal bowel sounds Extremity exam reveals no edema no cyanosis or clubbing Neurological examination reveals, no gross focal neurological deficits - Labs CBC & Chem 7: 05/12/20 08:11 05/12/20 08:11 Labs: Abnormal Lab Results - Last 24 Hours (Table) 05/12/20 Range/Units 08:11 Chloride 109 H (98-107) mmol/L Carbon Dioxide 20 L (22-30) mmol/L Glucose 133 H (74-99) mg/dL Total Bilirubin 6.3 H (0.2-1.3) mg/dL AST 274 H (14-36) U/L ALT 361 H (4-34) U/L Alkaline Phosphatase 188 H (38-126) U/L Assessment and Plan Plan: Abdominal pain Jaundice, with elevated total bilirubin at 7.5 Evidence of gallbladder wall thickening with evidence of cholelithiasis Dilated common bile duct Elevated liver enzymes AST a LT and alkaline phosphatase At this time patient is admitted to medical floor she would be kept on clear liquid diet She will be given IV fluid and IV pain medications Consultation for gastroenterology was initiated
--- NOTE | 2020-05-12 14:18 | P.PN ---
Subjective Progress Note Date: 05/12/20 Principal diagnosis: Right upper quadrant pain, elevated LFTs and jaundice Patient is a 51-year-old pleasant white female who was admitted to the hospital with complaints of severe right upper quadrant abdominal pain for last 8 days duration. Her symptoms began last Friday which at that time the pain was very intense and subsequently had some labs done as an outpatient basis with Dr. Painting was told that she had elevated LFTs and jaundice. She underwent an outpatient CT of the abdomen with unremarkable findings. However repeat LFTs remained elevated and she was told to present to the emergency department for further evaluation. Ultrasound in the abdomen the emergency department showed evidence of mild gallbladder wall thickening and multiple gallstones with CBD di lation. He underwent an ERCP yesterday however cannulation of the common bile duct was unsuccessful area and it was recommended that the patient be transferred to [facility] for higher level of care and advanced endoscopy for ERCP. Objective - Vital Signs Vital signs: Vital Signs Temp 98.2 F 05/12/20 08:36 Pulse 74 05/12/20 08:36 Resp 20 05/12/20 08:36 BP 138/79 05/12/20 08:36 Pulse Ox 96 05/12/20 08:36 Intake & Output 05/11/20 05/12/20 05/12/20 18:59 06:59 18:59 Intake Total 400 Balance 400 Intake: IV 400 Other: Voiding Method Toilet # Voids 1 2 # Bowel Movements 1 - Exam General appearance: The patient is alert, oriented, in no acute distress. HET: Head is normocephalic and atraumatic. Conjunctiva pink. Sclera icteric. Neck: Supple without lymphadenopathy. Abdomen: Soft, right upper quadrant and epigastric tenderness,nondistended with bowel sounds. No guarding or rigidity. E. Skin: Jaundicextremities: Normal skin color and turgor. No pedal edema Neurological: No focal deficits. Alert and oriented 3. - Labs CBC & Chem 7: 05/12/20 08:11 05/12/20 08:11 Labs: Abnormal Lab Results - Last 24 Hours (Table) 05/12/20 Range/Units 08:11 Chloride 109 H (98-107) mmol/L Carbon Dioxide 20 L (22-30) mmol/L Glucose 133 H (74-99) mg/dL Total Bilirubin 6.3 H (0.2-1.3) mg/dL AST 274 H (14-36) U/L ALT 361 H (4-34) U/L Alkaline Phosphatase 188 H (38-126) U/L Assessment and Plan (1) Elevated liver enzymes Narrative/Plan: This lady who presented with severe right upper quadrant abdominal pain for the last 3 days duration. The pain has been progressively getting worse associated with nausea, vomiting and now with elevated serum transaminase and bilirubin up to 7.5. Ultrasound showed gallstones and CBD dilation, most likely we are dealing with choledochal lithiasis. The patient underwent an ERCP yesterday with unsuccessful cannulation common bile duct. Recommendation is to transfer patient to a tertiary center for advanced endoscopy and gastroenterology. Current Visit: Yes Status: Acute Code(s): R74.8 - ABNORMAL LEVELS OF OTHER SERUM ENZYMES SNOMED Code(s): 868314823 (2) Cholelithiasis Current Visit: Yes Status: Acute Code(s): K80.20 - CALCULUS OF GALLBLADDER W/O CHOLECYSTITIS W/O OBSTRUCTION SNOMED Code(s): 878057267 (3) Elevated bilirubin Current Visit: Yes Status: Acute Code(s): R17 - UNSPECIFIED JAUNDICE SNOMED Code(s): 89574408 (4) Jaundice Current Visit: Yes Status: Acute Code(s): R17 - UNSPECIFIED JAUNDICE SNOMED Code(s): 27293159 Plan: 1. Supportive care 2. Start clear liquid diet 3. Recommend transfer to tertiary care center for advanced endoscopy and joan roenterology 4. Surgery on consult, appreciate their recommendations 5. Repeat labs in the morning Thank you for this consultation we will continue to follow Dr. Nicholas Burnham I agree with the dictator's note, documented as a scribe by Cristina Beaver.
[2020-05-12 15:13] VITALS: BP 129/81; PULSE 68; TEMP 98.5
[2020-05-12] MEDS ORDERED: SODIUM CHLORIDE 0.9% 1,000 ML IV SCH (16:15)
== END 2020-05-12 18:10 | disposition short-term general hospital (02) | DRG 445 ==
LOC: EC 09:18 → 6PED 10:52
PROVIDERS: ADMIT Internal Medicine; ATTEND Internal Medicine
PROC: 0FJD8ZZ Inspection of Pancreatic Duct, Via Natural or Artificial Opening Endoscopic (ICD-10-PCS; principal; 2020-05-10)
DX: K80.70 Calculus of gallbladder and bile duct without cholecystitis without obstruction (principal); Z68.41 Body mass index [BMI] 40.0-44.9, adult; E66.01 Morbid (severe) obesity due to excess calories; Z20.822 Contact with and (suspected) exposure to COVID-19; Z79.899 Other long term (current) drug therapy; Z91.011 Allergy to milk products; Z83.79 Family history of other diseases of the digestive system; Z82.49 Family history of ischemic heart disease and other diseases of the circulatory system; Z83.3 Family history of diabetes mellitus; Z82.1 Family history of blindness and visual loss
CPT/HCPCS: 36415; 43260; 74330; 76705; 80053; 81001; 81025; 82140; 82150; 82248; 83690; 85025; 85610; 87635; 96360; 96361; 99285